=== PATIENT | male | born 1955 | race Caucasian/White ===

== ENCOUNTER 2018-09-22 17:34 | Emergency (ER) | payer OTHER ==
[~2018-09-22] VITALS: Ht 167.6 cm; Wt 65.5 kg
[2018-09-22 17:37] VITALS: BP 126/90
--- NOTE | 2018-09-22 18:56 | NUR ---
AFTER AIR STIRRUP APPLIED BY TECH, PT AMBULATED WITH CRUTCHES AFTER PROVIDED TEACHING.
== END 2018-09-22 18:58 | disposition home or self-care (01) ==
LOC: ED 18:50
DX: S93.491A Sprain of other ligament of right ankle, initial encounter (principal); E78.00 Pure hypercholesterolemia, unspecified; X50.1XXA Overexertion from prolonged static or awkward postures, initial encounter; Y93.89 Activity, other specified; Y92.89 Other specified places as the place of occurrence of the external cause; Y99.8 Other external cause status
CPT/HCPCS: 99283

== ENCOUNTER → 2019-11-13 | Outpatient (CLI) | payer OTHER | END | disposition home or self-care (01) | LOC: STAR 14:45 | PROVIDERS: ATTEND Urology | DX: Z01.818 Encounter for other preprocedural examination (principal); C61 Malignant neoplasm of prostate | CPT/HCPCS: 93005 ==